=== PATIENT | female | born 1945 | race Two or more races ===

== ENCOUNTER → 2024-10-20 | Outpatient (CLI) | payer MEDICARE, SELFPAY ==
[2024-10-20 13:28] LABS: Collection Type, Urine Clean Catch
[2024-10-20 13:44] LABS: Basophils % (Auto) 0 % (0-2.5); Eosinophils # (Auto) 0.1 Thou/mm3 (0.0-0.5); Eosinophils % (Auto) 3 % (0-10); Hemoglobin 14.3 g/dL (12.0-16.0); Immature Granulocytes % (Auto) 0 % (0-0); Immature Granulocytes Auto 0.01 Thou/mm3 (0.00-0.00); Lymphocytes # (Auto) 0.8 Thou/mm3 (1.0-4.8); Lymphocytes % (Auto) 21 % (10-50); Mean Corpuscular Hemoglobin 33.9 pg (25.0-35.0); Mean Corpuscular Volume 100 fL (80-100); Monocytes # (Auto) 0.4 Thou/mm3 (0.0-0.8); Monocytes % (Auto) 9 % (0-12); Neutrophils # (Auto) 2.6 Thou/mm3 (1.8-7.7); Neutrophils % (Auto) 66 % (37-80); Nucleated Red Blood Cell % 0 /100 WBC (0); Platelet Count 194 Thou/mm3 (140-440); RDW Standard Deviation 46.2 fL (36.4-46.3); Red Blood Count 4.22 Miln/mm3 (4.00-5.20)
[2024-10-20 13:45] LABS: Bacteria,Urine Rare; Bilirubin,Urine Negative (Negative); Blood,Urine Negative (Negative); Clarity,Urine Clear (Clear/Hazy); Color,Urine Lt-Yellow (Lt Yel-Yel); Glucose, Urine Negative (Negative); Ketones,Urine Negative (Negative); Leukocyte Esterase,Urine Positive (Negative); Nitrite,Urine Negative (Negative); PH,Urine 6.5 (5.0-7.0); Protein,Urine Negative (Neg - Trace); RBC,Urine 4 /hpf (0-3); Squamous Epithelial Cell,Urine 2 /hpf (0-5); Urobilinogen,Urine Negative mg/dL (0.0-1.0); WBC,Urine 14 /hpf (0-5)
[2024-10-20 13:50] LABS: Glucose Estimated Average 97 mg/dL (80-131)
[2024-10-20 14:03] LABS: Alanine Aminotransferase 14 U/L (10-49); Albumin, Serum 4.1 gm/dL (3.4-4.8); Albumin/Globulin Ratio 1.5 (1.2-2.2); Alkaline Phosphatase 67 U/L (46-116); Anion Gap 9 (7-16); Aspartate Amino Transferase 14 U/L (0-34); BUN/Creatinine Ratio 18 Ratio (12-20); Blood Urea Nitrogen 14 mg/dL (9-23); Calcium 9.5 mg/dL (8.3-10.6); Calcium (Corrected) 9.5 mg/dL (8.5-10.1); Carbon Dioxide 27.4 mMol/L (20.0-31.0); Cardiac Risk Estimate 3.2 RATIO (3.7-5.6); Chloride 104 mMol/L (98-107); Cholesterol 187 mg/dL (132-200); Creatinine (Component) 0.8 mg/dL (0.6-1.3); Globulin 2.7 gm/dL (2.3-3.5); Glucose 83 mg/dL (74-106); HDL Cholesterol 58 mg/dL (40-60); LDL Cholesterol,Calculated 111 mg/dL (0-130); Osmolality,Calculated 278 (275-295); Potassium 4.2 mMol/L (3.4-5.1); Sodium 140 mMol/L (136-145); Total Protein 6.8 gm/dL (5.7-8.2); Triglycerides 91 mg/dL (30-150); Uric Acid 3.7 mg/dL (3.1-7.8); eGFR > 60 See Note
[2024-10-20 14:07] LABS: Vitamin B12 553 pg/mL (211-911); Vitamin D 25 Hydroxy Total 48.6 ng/mL (7.3-40.2)
== END | disposition home or self-care (01) ==
PROVIDERS: PCP Internal Medicine; Referring Provider Internal Medicine; Visit Provider Internal Medicine
DX: Z00.00 Encounter for general adult medical examination without abnormal findings (principal); E03.9 Hypothyroidism, unspecified; M25.552 Pain in left hip; E78.5 Hyperlipidemia, unspecified
CPT/HCPCS: 36415; 80053; 80061; 81001; 82306; 82607; 83036; 84443; 84550; 85025

== ENCOUNTER 2025-06-01 13:47 | Emergency (ER) | payer MEDICARE, SELFPAY ==
[2025-06-01 13:48] VITALS: BMI 25.0
[2025-06-01 14:25] VITALS: BP 127/71; PULSE 84; RESP 18; TEMP 36.8; O2SAT 96
--- NOTE | 2025-06-01 14:32 | XR_ITS ---
Examination: CT abdomen and pelvis without contrast. Coronal 3-D reconstructions. Sagittal 2-D reconstructions. Date and time of exam: June 01, 2025, 1455 hours INDICATIONS: Abdominal pain diarrhea beginning 9 days ago COMPARISON: February 01, 2013 CTDI: vol (mGy): 5.93 DLP: (mGycm): 292 Technique: Axial images of the abdomen have been obtained, 3 mm slice thickness Intravenous contrast material has not been administered. Low dose protocols were performed. One or more of the following dose reduction techniques were used; automated exposure control, adjustment of the mA and/or KV according to patient size, use of iterative reconstruction technique. Findings: 18 mm right lobe liver cyst No gallstones No pancreatic or adrenal mass No renal or ureteral calculi, no hydronephrosis Normal appendix No bowel obstruction Mild small bowel ileus Colonic diverticulosis no diverticulitis Anteverted uterus 14 mm calcification in the right adnexal region Contracted urinary bladder Severe osteopenia Grade 1 anterolisthesis L4 on L5 Advanced degenerative disc disease L5-S1 L4-L5 severe acquired spinal stenosis, axial image 100, secondary to the grade 1 anterolisthesis, 6 mm central lumbar disc bulge, facet arthropathy and thickening of ligamentum flavum with moderate right and mild left L5 ganglionic compression IMPRESSION: Mild small bowel ileus No obstruction Recommend pelvic sonography to assess 14 mm calcification in the right adnexal region L4-L5 severe overall acquired spinal stenosis
--- NOTE | 2025-06-01 14:32 | PD.EDRME ---
Rapid Medical Screening Exam E Arrival date/time: 06/01/25 13:47 79-year-old female with a history of diverticulitis presents to the emergency room with a chief complaint of 8 out of 10 left lower quadrant abdominal pain x 2 days I have greeted and performed a focused initial assessment of this patient. A comprehensive ED assessment and evaluation of the patient, analysis of all test results, and completion of the medical decision making process will be conducted by additional ED providers. Chief Complaint: Abdominal Pain Time Seen by Provider: 06/01/25 14:06 Vital signs: Vital Signs Temperature 98.3 F 06/01/25 14:25 Pulse Rate 84 06/01/25 14:25 Respiratory Rate 18 06/01/25 14:25 Blood Pressure 127/71 06/01/25 14:25 Pulse Oximetry (%) 96 06/01/25 14:25 Oxygen Delivery Method Room Air 06/01/25 14:25 Vital signs reviewed by provider: Yes Exam: 8 out of 10 left lower quadrant abdominal pain with palpation, active bowel sounds to all 4 quadrants Strong and regular rhythm S1 and S2 noted Clinical Impression: Diverticulitis/diverticulosis/IBS/H. pylori
[2025-06-01 15:41] LABS: Basophils # (Auto) 0.0 Thou/mm3 (0.0-0.2); Basophils % (Auto) 0 % (0-2.5); Eosinophils # (Auto) 0.0 Thou/mm3 (0.0-0.5); Eosinophils % (Auto) 1 % (0-10); Hematocrit 42.2 % (36.0-46.0); Hemoglobin 14.5 g/dL (12.0-16.0); Immature Granulocytes Auto 0.01 Thou/mm3 (0.00-0.00); Lymphocytes # (Auto) 0.7 Thou/mm3 (1.0-4.8); Lymphocytes % (Auto) 22 % (10-50); Mean Corpuscular HGB Conc 34.4 g/dl (31.0-37.0); Mean Corpuscular Hemoglobin 34.4 pg (25.0-35.0); Mean Corpuscular Volume 100 fL (80-100); Monocytes # (Auto) 0.4 Thou/mm3 (0.0-0.8); Monocytes % (Auto) 12 % (0-12); Neutrophils # (Auto) 2.0 Thou/mm3 (1.8-7.7); Neutrophils % (Auto) 64 % (37-80); Nucleated Red Blood Cell # 0.00 Thou/mm3 (0.00-0.00); Nucleated Red Blood Cell % 0 /100 WBC (0); Platelet Count 195 Thou/mm3 (140-440); RDW Standard Deviation 44.7 fL (36.4-46.3); Red Blood Count 4.22 Miln/mm3 (4.00-5.20); White Blood Count 3.1 Thou/mm3 (3.6-11.0)
[2025-06-01 15:53] LABS: Collection Type, Urine Clean Catch
[2025-06-01 16:05] LABS: Bacteria,Urine Rare; Bilirubin,Urine Negative (Negative); Blood,Urine Trace (Negative); Color,Urine Yellow (Lt Yel-Yel); Glucose, Urine Negative (Negative); Hyaline Casts,Urine 2 /hpf (0-1); Ketones,Urine 1+ (Negative); Leukocyte Esterase,Urine Positive (Negative); Nitrite,Urine Negative (Negative); PH,Urine 6.0 (5.0-7.0); Protein,Urine 1+ (Neg - Trace); RBC,Urine 3 /hpf (0-3); Specific Gravity,Urine 1.025 (1.001-1.035); Squamous Epithelial Cell,Urine 1 /hpf (0-5); Urobilinogen,Urine Negative mg/dL (0.0-1.0); WBC,Urine 6 /hpf (0-5); Waxy Casts,Urine < 1 /hpf (0-1)
[2025-06-01 16:07] LABS: Clarity,Urine Hazy (Clear/Hazy)
[2025-06-01 16:11] LABS: Alanine Aminotransferase 13 U/L (10-49); Albumin, Serum 4.8 gm/dL (3.4-4.8); Albumin/Globulin Ratio 2.0 (1.2-2.2); Alkaline Phosphatase 60 U/L (46-116); Anion Gap 12 (7-16); Aspartate Amino Transferase 27 U/L (0-34); BUN/Creatinine Ratio 15 Ratio (12-20); Bilirubin,Total 0.6 mg/dL (0.3-1.2); Blood Urea Nitrogen 12 mg/dL (9-23); Calcium 8.9 mg/dL (8.3-10.6); Calcium (Corrected) 8.9 mg/dL (8.5-10.1); Carbon Dioxide 23.3 mMol/L (20.0-31.0); Chloride 100 mMol/L (98-107); Creatinine (Component) 0.8 mg/dL (0.6-1.3); Estimated Creatinine Clearance 42.4 mL/min (>60); Globulin 2.4 gm/dL (2.3-3.5); Glucose 81 mg/dL (74-106); Lipase 59 U/L (12-53); Osmolality,Calculated 268 (275-295); Potassium 3.7 mMol/L (3.4-5.1); Sodium 135 mMol/L (136-145); Total Protein 7.2 gm/dL (5.7-8.2); eGFR > 60 See Note
--- NOTE | 2025-06-01 19:24 | PD.EDABDPN ---
ED Abdominal Pain RME/HPI General Chief Complaint: Abdominal Pain Stated complaint: BILAT. ABD PAIN X9 DAYS, DIARRHEA & PANDEY X1 DAY Time seen by provider: 06/01/25 14:06 Arrival date/time: 06/01/25 13:47 RME / HPI RME / HPI narrative: 06/01/25 13:47 79-year-old female with a history of diverticulitis presents to the emergency room with a chief complaint of 8 out of 10 left lower quadrant abdominal pain x 2 days I have greeted and performed a focused initial assessment of this patient. A comprehensive ED assessment and evaluation of the patient, analysis of all test results, and completion of the medical decision making process will be conducted by additional ED providers. DR. CHRISTINA MAIN ED EVALUATION: Patient presenting with ongoing predominantly lower quadrant abdominal pain for approximately 10 days duration increasing over the last 24 hours and worse with PO intake. Also reported recent onset diarrhea described as watery stools in excess of 10 in the last 24 hours with reported general fatigue. Patient reportedly eats a large amount of spice daily. PMH: Diverticular disease based upon prior endoscopy PSH: None Allergies: None Social: Occasional alcohol, no tobacco or illicit drug abuse Exam: 8 out of 10 left lower quadrant abdominal pain with palpation, active bowel sounds to all 4 quadrants Strong and regular rhythm S1 and S2 noted Impression: Diverticulitis/diverticulosis/IBS/H. pylori Related Data Home Medications ?Medication ?Instructions ?Recorded ?Confirmed calcium 500 mg (as 1 tab PO DAILY 06/06/18 10/20/23 carbonate)-vitamin D3 3.125 mcg (125 unit) tablet (Calcium) cetirizine 10 mg tablet (Zyrtec) 10 mg PO DAILY PRN Allergy Symptoms 06/06/18 10/20/23 cyanocobalamin (vitamin B-12) 0.5 tab PO DAILY 06/06/18 10/20/23 2,500 mcg sublingual tablet (Vitamin B-12) lutein 25 mg-zeaxanthin 5 mg 1 tab PO DAILY 06/06/18 10/20/23 capsule propylene glycol 0.6 % eye drops 1 drp ophthalmic (eye) 5 TIMES 10/20/23 10/20/23 (Systane Complete) DAILY Previous Rx's ?Medication ?Instructions ?Recorded loperamide 2 mg capsule (Imodium 2 mg PO Q6H PRN loose stool #10 06/01/25 A-D) caps ondansetron HCl 4 mg tablet 4 mg PO TID PRN Nausea And 06/01/25 Vomiting #16 tabs Allergies Allergy/AdvReac Type Severity Reaction Status Date / Time No Known Allergies Allergy Verified 06/01/25 13:50 Review of Systems Review of Systems Systems Reviewed: All systems reviewed, normal except as documented Past Medical History Past Medical History RESPIRATORY: Positive Bronchitis (AFTER URI) GASTROINTESTINAL: Positive Gastrointestinal Disorders (CONSTIPATION) MUSCULOSKELETAL: Positive Musculoskeletal Disorders (Bulging disk, spinal stenosis) and Osteoporosis (HIP- OSTEOPENIA) ENT: Positive Cataracts (BILATERAL) OTHER HISTORY: Positive Anesthesia Reactions (HARD TO AROUSE. STATES IS SENSITIVE TO MEDS) Family History FAMILY HISTORY: Positive Family Cardiac Disorders (BROTHER- HEART STENTS) ED Exam Narrative Physical exam: GEN. APPEARANCE: The patient is alert awake oriented X-3 under no distress, lying down comfortably, does not look ill/toxic.? Patient has good eye contact.? Patient is cooperative. VITALS: All vitals were reviewed and the pulse ox is 96%, which is normal according to my interpretation HEENT: Normocephalic, atraumatic and nontender.? Pupils are equal and reactive.? Oral mucosa is moist. NECK: Supple, nontender, no meningismus, no JVD.? There is no thyromegaly and no lymphadenopathy. CHEST: Nontender on palpation no deformity and no crepitus. CARDIOVASCULAR: Heart regular rhythm, no murmur or gallop rub or extra beats. LUNGS: Clear to auscultation bilaterally with symmetrical chest rise.? No laboring tachypnea or wheezing.? No intercostal subcostal retraction.? No rales and no rhonchi. ABDOMEN: Soft, flat, mild TTP throughout, no guarding or peritoneal findings.? There are no abnormal masses palpated.? No pulsatile masses or bruits.? Active and normal bowel sounds. EXTREMITIES:.Normal inspection and palpation.? No edema.? No cyanosis. Patient is able to move all 4 extremities well SKIN: Warm and dry, no rashes noted. MUSCULOSKELETAL: No lumbar or midline bony tenderness.? There is no CVA tenderness.? No paraspinal muscle spasm or tenderness. NEURO: Cranial nerves II through XII grossly intact.? There are no focal neurologic deficits noted. GCS is 15 PSYCHIATRIC: Patient is in normal mood and affect, cooperative. LYMPHATICS: No major lymphadenopathy noted. Course Quality Measures none Orders Category Date Time Status CT abdomen pelvis wo con Stat Exams 06/01/25 14:32 Completed CBC Stat Lab 06/01/25 15:15 Completed CMP [Comprehensive Metabolic Panel] Stat Lab 06/01/25 15:15 Completed Lipase Stat Lab 06/01/25 15:15 Completed Stool Culture Stat Lab 06/01/25 19:40 Ordered UA [Urinalysis] Stat Lab 06/01/25 15:34 Completed Urine Culture Stat Lab 06/01/25 15:34 Received Morphine* Inj Med 06/01/25 19:40 Once 4 mg IVP X1 ONE Prochlorperazine Inj [Compazine Inj] Med 06/01/25 19:39 Once 2.5 mg IV X1 ONE Sodium Chloride 0.9% 1000 ml [Ns] 1,000 ml Med 06/01/25 19:39 Ordered IV 999 mls/hr Vital Signs Vital signs: Vital Signs Temperature 98.3 F 06/01/25 14:25 Pulse Rate 84 06/01/25 14:25 Respiratory Rate 18 06/01/25 14:25 Blood Pressure 127/71 06/01/25 14:25 Pulse Oximetry (%) 96 06/01/25 14:25 Oxygen Delivery Method Room Air 06/01/25 14:25 Abdominal Pain MDM MDM Narrative MDM Narrative:: Scribe Attestation: IIleana am scribing for and in the presence of Dr. Christina. Provider Notation: Although this document has been carefully reviewed, there may still be some phonetic and other typographical errors. These errors are purely grammatical due to imperfections in the software program and should not be construed in any way to compromise the substance of the patient's medical care during this visit. Patient presenting with ongoing predominantly lower quadrant abdominal pain for approximately 10 days duration increasing over the last 24 hours and worse with PO intake. Also reported recent onset diarrhea described as watery stools in excess of 10 in the last 24 hours with reported general fatigue. Laboratory markers demonstrated slightly depressed WBC of 3.1 and H&H of 14.5/42 and normal platelet count with no left shift or associated bandemia. Serum chemistries essentially unremarkable. Renal function within normal limits. Lipase mildly elevated at 59. Special studies including CT scan demonstrated diverticulosis with no diverticullitis. Calcification within right adnexa, and evidence of severe spinal stenosis at L-4, L-5 along with a mild small bowel ileus, no obstruction identified. Patient hydrated with saline, treated with low-dose IV narcotic analgesics. Considered stable for discharge after period of observation. Will recommend clear liquid diet and close F/U with PMD. Precautionary instructions issued. Will prescribe Zofran for nausea and Imodium for diarrhea. Patient data External records reviewed:: [facility] previous records (No recent ED records available for review.) Clinical information provided by:: patient Social determinants that could affect healthcare access:: alcohol use Patient has the following chronic illnesses:: Bulging disk, Spinal Stenosis, and Osteoporosis, Cataracts How is presenting disease/condition affected by chronic disease/condition?: exacerbated by Evaluation data The following diagnostics were reviewed and interpreted by me:: lab results and radiology exam(s) Lab and/or radiology exams considered but not ordered:: None Interpretation Summary: RADIOLOGY Abdomen/Pelvis CT: Findings: 18 mm right lobe liver cyst No gallstones No pancreatic or adrenal mass No renal or ureteral calculi, no hydronephrosis Normal appendix No bowel obstruction Mild small bowel ileus Colonic diverticulosis no diverticulitis Anteverted uterus 14 mm calcification in the right adnexal region Contracted urinary bladder Severe osteopenia Grade 1 anterolisthesis L4 on L5 Advanced degenerative disc disease L5-S1 L4-L5 severe acquired spinal stenosis, axial image 100, secondary to the grade 1 anterolisthesis, 6 mm central lumbar disc bulge, facet arthropathy and thickening of ligamentum flavum with moderate right and mild left L5 ganglionic compression IMPRESSION: Mild small bowel ileus No obstruction Recommend pelvic sonography to assess 14 mm calcification in the right adnexal region L4-L5 severe overall acquired spinal stenosis Medications / Prescriptions Medications or Prescriptions considered but not ordered:: None Medication administrations:: Medication Administration History Sodium Chloride (Ns) 1,000 mls @ 999 mls/hr IV .Q1H1M ONE Stop: 06/01/25 20:39 Morphine Sulfate (Morphine Sulf Inj 4 Mg/Ml Vial) 4 mg IVP X1 ONE Stop: 06/01/25 19:41 Prochlorperazine Edisylate (Prochlorperazine Inj 5 Mg/Ml Vial 2 Ml) 2.5 mg IV X1 ONE; Protocol Stop: 06/01/25 19:40 See above if any Consultations Consultation(s) initiated? (list below): No Diagnosis Differential diagnosis abdominal pain: abdominal pain, calculus of kidney, constipation, diverticulitis, gastroenteritis and small bowel obstruction Most likely diagnosis given after review of the tests above:: Diarrhea in adult patient Admission Indicated Admission indicated?: not indicated Explain why admission is indicated or not indicated:: Patient does not meet admission criteria Admission Request Was there a request for admission?: No Disposition Plan Disposition Plan: Discharge Discharge Attestation Discharge Attestation: The patient and all family members were given an opportunity to ask questions and understood the discharge instructions. Discharge instructions specifically effects, indications for sooner follow up or return to the emergency department, and the expected course of current diagnosis. Patient condition: Stable Discharge Plan Plan Patient Disposition: HOME (Self Care) Discharge Disposition comment: Stable Prescriptions/Referrals Prescriptions/Med Rec: New ondansetron HCl 4 mg tablet 4 mg PO TID PRN (Reason: Nausea And Vomiting) Qty: 16 0RF loperamide [Imodium A-D] 2 mg capsule 2 mg PO Q6H PRN (Reason: loose stool) Qty: 10 0RF No Action cyanocobalamin (vitamin B-12) [Vitamin B-12] 2,500 mcg Tablet, Sublingual 0.5 tab PO DAILY cetirizine [Zyrtec] 10 mg Tablet 10 mg PO DAILY PRN (Reason: Allergy Symptoms) calcium carbonate-vitamin D3 [Calcium 500 + D (D3)] 500 mg(1,250mg) -125 unit Tablet 1 tab PO DAILY lutein-zeaxanthin 25-5 mg Capsule 1 tab PO DAILY Systane Complete 0.6 % Drops 1 drp OPHTHALMIC (EYE) 5 TIMES DAILY Referrals: No Primary/Family,Physician [Primary Care Provider] - In 1 week Problem List Clinical Impression: Diarrhea in adult patient Impression comment: Diarrheal illness Patient/Caregiver Discharge Instructions Discharge Activity: activity as tolerated Diet Instructions: Maintain clear liquid diet for 24 to 48 hours and advance as tolerated. Avoid spicy foods. Education Materials: Treating Diarrhea, ED Diarrhea, Unknown Cause Additional Instructions: Maintain clear liquid diet for 24 to 48 hours and advance as tolerated. Avoid spicy foods. Print Language: Citizen Of [place] Stand Alone Forms: Lavonne Award Info., Patient Portal Info Letter
[2025-06-01 19:50] VITALS: BP 137/72; PULSE 66; RESP 19; TEMP 36.5; O2SAT 100
[2025-06-01] MEDS: SODIUM CHLORIDE 0.9% 1000 ML 1,000 ML 999 ML IV (20:00)
[2025-06-01] MEDS: KETOROLAC INJ 30 MG/ML VIAL 15 MG IVP (20:10)
[2025-06-01 21:55] VITALS: BP 152/60; PULSE 66; RESP 18; TEMP 36.4; O2SAT 100
== END 2025-06-01 22:36 | disposition home or self-care (01) ==
PROVIDERS: Nurse Practitioner Family; Emergency Provider Emergency Medicine
DX: K56.7 Ileus, unspecified (principal); K57.32 Diverticulitis of large intestine without perforation or abscess without bleeding; K58.9 Irritable bowel syndrome, unspecified
CPT/HCPCS: 36415; 74176; 80053; 81001; 83690; 85025; 87015; 87045; 87046; 87077; 87086; 87186; 87899; 96361; 96374; 99282; J1885; J7030